=== PATIENT | female | born 1990 | race Caucasian/White ===

== ENCOUNTER 2017-05-15 17:04 | Emergency (ER) | payer BC, OTHER ==
[~2017-05-15] VITALS: Ht 162.6 cm; Wt 86.7 kg
[~2017-05-15 17:04] MED LIST: ACID CONTROL150 MG PO; ADDERALL XR 3030 MG PO; ADDERALL10 MG PO; ADDERALL20 MG PO; AMBIEN10 MG PO; AMOXICILLIN500 MG PO; BENTYL10 MG PO; BUDEPRION SR150 MG PO; CELEXA20 MG PO; EPIPEN ADU0.3 MG/0.3 IM; FLEXERIL10 MG PO; MOTRIN800 MG PO; NAPROSYN500 MG PO; NOHOMEMEDS; NORCO 5/3251 TABLET PO; OPCON-A EYE DRO15 ML BOTH EYES; OPCON-A EYE DRO15 ML OP; PANTOPRAZOLE SO40 MG PO; PEN-VEE K,VEET500 MG PO; PERCOCET 5/31 TABLET PO; PREDNISONE20 MG PO; PREDNISONE50 MG PO; PROAIR HFA8.5 GM; PROAIR HFA8.5 GM IH; QUETIAPINE FUM100 MG PO; RANITIDINE HCL75 MG PO; SEROQUEL100 MG PO; TRAMADOL HCL50 MG PO; ULTRAM50 MG PO; VENTOLIN HFA18 GM IH; VICODIN 5-3001 EACH PO; VYVANSE50 MG PO; VYVANSE60 MG PO; ZANTAC150 MG PO; ZYRTEC10 M3 PO
[2017-05-15 17:49] LABS: HEMATOCRIT 41.2 % (36.0-46.0); HEMOGLOBIN 14.4 G/DL (11.9-15.5); MCH 28.9 PG (29.0-34.0); MCV 82.6 FL (83-99); RBC DIS.WIDTH-CV 13.4 % (11.8-14.6); RBC DIS.WIDTH-SD 40.2 % (39-53); RED BLOOD COUNT 4.99 M/uL (3.80-5.20); WHITE BLOOD COUNT 8.6 K/uL (4.1-10.2)
[2017-05-15 17:52] LABS: PLATELET COUNT 269 K/uL (156-360)
[2017-05-15 17:58] LABS: CHLORIDE 106 mEq/L (99-109); POTASSIUM 3.8 mEq/L (3.7-5.4); SODIUM 139 mEq/L (136-147)
[2017-05-15 18:00] LABS: GLUCOSE 94 mg/dL (70-99)
[2017-05-15 18:04] LABS: CREATININE 0.8 mg/dL (0.6-1.3); GFR ESTIMATE (CALCULATED) > 59 mL/min/; UREA NITROGEN (BUN) 9 mg/dL (9-23)
[2017-05-15 19:42] VITALS: BP 120/89
== END 2017-05-15 19:42 | disposition home or self-care (01) ==
LOC: EME 17:04
PROVIDERS: Nurse Practitioner Family
DX: M79.662 Pain in left lower leg (principal); K21.9 Gastro-esophageal reflux disease without esophagitis; F17.200 Nicotine dependence, unspecified, uncomplicated; F41.9 Anxiety disorder, unspecified; F32.9 Major depressive disorder, single episode, unspecified; F43.10 Post-traumatic stress disorder, unspecified; F90.9 Attention-deficit hyperactivity disorder, unspecified type; Z79.51 Long term (current) use of inhaled steroids; Z86.711 Personal history of pulmonary embolism
CPT/HCPCS: 71046; 80048; 85027; 85379; 99281; 99284